=== PATIENT | female | born 1960 | race Two or more races ===

== ENCOUNTER 2022-02-22 09:43 | Outpatient (CLI) | payer OTHER | END 2022-02-22 09:58 | disposition home or self-care (01) | LOC: EDBD 09:43 → TOM 09:43 | PROVIDERS: ATTEND Urology | DX: C67.9 Malignant neoplasm of bladder, unspecified (principal) ==

== ENCOUNTER 2022-04-17 09:58 | Outpatient (CLI) | payer OTHER | END 2022-04-17 09:59 | disposition home or self-care (01) | LOC: NUCLEAR 09:58 | PROVIDERS: ATTEND Urology | DX: C67.9 Malignant neoplasm of bladder, unspecified (principal); N13.1 Hydronephrosis with ureteral stricture, not elsewhere classified | CPT/HCPCS: 78708; A9539; J1940 ==

== ENCOUNTER 2022-05-08 08:30 | Outpatient (CLI) | payer OTHER | END 2022-05-08 08:45 | disposition home or self-care (01) | LOC: TOM 08:30 | PROVIDERS: ATTEND Urology | DX: N13.1 Hydronephrosis with ureteral stricture, not elsewhere classified (principal) ==

== ENCOUNTER 2022-07-13 07:11 | Outpatient (CLI) | payer OTHER | END 2022-07-13 11:46 | disposition home or self-care (01) | LOC: NUCLEAR 07:11 | PROVIDERS: ATTEND Urology | DX: C67.9 Malignant neoplasm of bladder, unspecified (principal) | CPT/HCPCS: 78815; A9552 ==

== ENCOUNTER 2023-01-18 10:17 | Outpatient (CLI) | payer OTHER | END 2023-01-18 10:25 | disposition home or self-care (01) | LOC: SONOGRAMA 10:17 | PROVIDERS: ATTEND Urology | DX: C67.9 Malignant neoplasm of bladder, unspecified (principal); Z93.6 Other artificial openings of urinary tract status ==

== ENCOUNTER 2023-05-09 07:26 | Outpatient (CLI) | payer OTHER | END 2023-05-09 07:27 | disposition home or self-care (01) | LOC: NUCLEAR 07:26 | DX: C67.9 Malignant neoplasm of bladder, unspecified (principal) ==

== ENCOUNTER 2023-05-31 07:05 | Outpatient (CLI) | payer OTHER | END 2023-05-31 07:14 | disposition home or self-care (01) | LOC: MRI 07:05 | DX: R93.89 Abnormal findings on diagnostic imaging of other specified body structures (principal); C67.9 Malignant neoplasm of bladder, unspecified; D48.9 Neoplasm of uncertain behavior, unspecified; D37.4 Neoplasm of uncertain behavior of colon | CPT/HCPCS: 72197 ==